=== PATIENT | male | born 1960 | race Caucasian/White ===

== ENCOUNTER 2021-06-08 16:47 | Emergency (ER) | payer MEDICARE, SELFPAY ==
--- NOTE | ~2021-06-08 | XR_ITS ---
EXAMINATION: XR shoulder LT min 2V EXAM DATE: 06/08/2021 18:07 INDICATION: lt shoulder pain, no known injury . TECHNIQUE: The following left shoulder projections obtained: frontal projection with internal rotatio n, frontal projection with external rotation, Grashey, and axillary (4+ views). There is no prior st udy for comparison. FINDINGS: Large dense calcification along the rotator cuff, calcific tendinosis. There is mild glenoh umeral joint, moderate acromioclavicular joint primary osteoarthritis. There are no acute fractures o r dislocations identified. There is no subcutaneous gas. There are no radiopaque foreign bodies. IMPRESSION: 1. Large amount of calcific tendinosis. 2. Moderate acromioclavicular, mild glenohumeral osteoarthritis. 3. No acute findings. Reviewed, dictated and finalized at location .
[2021-06-08 17:09] VITALS: BP 237/96; PULSE 57; RESP 18; TEMP 36.4; O2SAT 100
--- NOTE | 2021-06-08 17:48 | ED.UPPEXIN ---
HPI - Extremity Injury (Upper) General Chief Complaint: Extremity Injury, Upper Stated Complaint: Left Arm Pain Time Seen by Provider: 06/08/21 17:48 Source: patient Mode of arrival: ambulatory Limitations: no limitations History of Present Illness HPI narrative: 60-year-old male presents with left shoulder pain for 3 weeks. Denies injury. States that pain started after he worked on replacing baseboards with his son. No previous left shoulder injury or surgery. States that yesterday he was supposed to have an appointment with his primary care physician but that it was canceled. Reports pain when laying on left side and also pain when laying on right side, is unable to get comfortable when sleeping. States that he has been babying his left arm for 3 weeks. Denies numbness tingling, no weakness. Taking Excedrin Migraine for pain relief. All systems reviewed and negative except as noted above. Related Data Home Medications Medication Instructions Recorded Confirmed Lipitor 06/08/21 amlodipine 06/08/21 aspirin 06/08/21 clopidogrel 06/08/21 hydralazine 06/08/21 isosorbide mononitrate mg PO 06/08/21 metoprolol succinate PO 06/08/21 metoprolol succinate PO 06/08/21 rosuvastatin mg 06/08/21 sertraline mg 06/08/21 zolpidem 06/08/21 Allergies Allergy/AdvReac Type Severity Reaction Status Date / Time Penicillins Allergy Severe Verified 06/29/08 15:52 iodine Allergy Unknown Verified 06/29/08 15:52 PCN, BIAXIN, LIPITOR, Allergy Unknown Uncoded 09/07/02 15:18 BETADINE STRAWBERRIES- CHILLS, Allergy Unknown Uncoded 09/07/02 15:18 VOMITTING, DIARRHEA ANTILIPEMIC Allergy Uncoded 06/29/08 15:52 CLARITHROMYCIN (Generic Allergy Y Uncoded 09/07/02 15:56 Allergy) MACROLIDES Allergy Uncoded 06/29/08 15:52 Review of Systems Review of Systems: CONSTITUTIONAL: Denies fever, chills, or sweats. EYES: Denies visual changes, redness, or discharge. ENT: Denies rhinorrhea, congestion, sore throat, or otalgia. CARDIOVASCULAR: Denies chest pain, palpitations, or edema. RESPIRATORY: Denies cough or dyspnea. GASTROINTESTINAL: Denies abdominal pain, nausea, vomiting, or diarrhea. GENITOURINARY: Denies dysuria or hematuria. SKIN: Denies rash or itching. MUSCULOSKELETAL: Denies back pain, joint pain, or myalgia. Left shoulder pain. NEUROLOGIC: Denies headache, numbness, or weakness. PSYCHIATRIC: Denies anxiety or depression. All other systems reviewed are negative, except as documented in HPI. PMFSH Comments At time of signature, agree with nursing past medical, surgical, social and family history. There is no relevant family history pertinent to the presenting complaint. Exam Narrative: GENERAL: This is a well-nourished, well-developed patient, in no apparent distress. HEAD: normocephalic, atraumatic. EYES: PERRL. Sclera clear/white. Vision is grossly intact. EARS: External ears normal NOSE: External nose normal THROAT: Mucous membranes moist NECK: Neck supple, non-tender without lymphadenopathy, masses or thyromegaly. CARDIOVASCULAR: Regular rate and rhythm without murmurs, gallops, or rubs. RESPIRATORY: Clear to auscultation. Breath sounds equal bilaterally. No wheezes, rales, or rhonchi. SKIN: warm, Dry, intact with no suspicious lesions or rash, good texture and turgor. NEURO: awake, alert, and oriented to person, place and time. There were no obvious focal neurologic abnormalities. EXTREMITIES: Normal range of motion all extremities. Tenderness to left shoulder at the AC joint, extending into the upper arm. Movement of left shoulder increases pain. Negative drop arm test. Course Course Level of Care: Express Care Visit Vital Signs Vital signs: Vital Signs Temperature 36.4 C L 06/08/21 17:09 Pulse Rate 57 L 06/08/21 17:09 Respiratory Rate 18 06/08/21 17:09 Blood Pressure 237/96 H 06/08/21 17:09 Pulse Oximetry 100 06/08/21 17:09 Temperature 36.4 C L 06/08/21 17:0
== END 2021-06-08 18:38 | disposition home or self-care (01) ==
PROVIDERS: Emergency Provider Nurse Practitioner Family
DX: M75.32 Calcific tendinitis of left shoulder (principal); M19.012 Primary osteoarthritis, left shoulder; Z86.16 Personal history of COVID-19; E78.00 Pure hypercholesterolemia, unspecified; I10 Essential (primary) hypertension
CPT/HCPCS: 73030; 99213; A4565; G0463

== ENCOUNTER 2021-10-26 12:43 | Emergency (ER) | payer MEDICARE, SELFPAY ==
--- NOTE | ~2021-10-26 | XR_ITS ---
EXAMINATION: XR chest 2V DATE: 10/26/2021 13:32 INDICATION: Shortness of breath. TECHNIQUE: Frontal and lateral views of the chest were obtained. COMPARISON: None. FINDINGS: The lungs are hyperexpanded, consistent with emphysema. No pneumonia, pleural effusion, or pneumothorax. The heart size is normal. IMPRESSION: 1. Emphysema. Reviewed, dictated and finalized at location A. IMPRESSION: 1. Emphysema.
[2021-10-26 12:52] VITALS: BP 197/92; PULSE 46; RESP 16; TEMP 36.6; O2SAT 100
--- NOTE | 2021-10-26 13:04 | ED.SKABFB ---
HPI - Skin/Abscess/Foreign Bdy General Chief complaint: Skin/Abscess/Foreign Body Stated complaint: Rash Time Seen by Provider: 10/26/21 13:09 Source: patient and RN notes reviewed Mode of arrival: ambulatory Limitations: no limitations History of Present Illness HPI narrative: 61-year-old male presents to concern for discoloration on his right ankle. Reports he may have gotten bit by a bug last night, he went home and scrubbed his ankle where he may have gotten bitten. He denies any itching or pain. Reports woke up this morning and noticed discoloration in the area. In a separate complaint the patient's reports he has been coughing for 2 weeks and she has noticed some heavy breathing. He reports he gets bilateral ankle swelling intermittently. His gave him one of her Lasix this week. He has a history of several CVAs and TIAs, has history of hypertension. He did not take all of his medication today. MD complaint: discoloration Related Data Home Medications Medication Instructions Recorded Confirmed amlodipine 10 mg tablet 06/08/21 aspirin 81 mg tablet,delayed 06/08/21 release clopidogrel 75 mg tablet 06/08/21 hydralazine 50 mg tablet 06/08/21 isosorbide mononitrate 60 mg mg PO 06/08/21 tablet,extended release 24 hr metoprolol succinate 100 mg PO 06/08/21 tablet,extended release 24 hr metoprolol succinate 50 mg PO 06/08/21 tablet,extended release 24 hr rosuvastatin 20 mg tablet mg 06/08/21 sertraline 100 mg tablet mg 06/08/21 zolpidem 10 mg tablet 06/08/21 doxazosin 2 mg tablet mg 10/26/21 Allergies Allergy/AdvReac Type Severity Reaction Status Date / Time Penicillins Allergy Severe Unknown Verified 10/26/21 12:46 iodine Allergy Unknown Unknown Verified 10/26/21 12:46 atorvastatin [From Lipitor] Allergy Weakness Verified 10/26/21 13:25 PCN, BIAXIN, LIPITOR, Allergy Unknown Unknown Uncoded 10/26/21 12:46 BETADINE STRAWBERRIES- CHILLS, Allergy Unknown Unknown Uncoded 10/26/21 12:46 VOMITTING, DIARRHEA ANTILIPEMIC Allergy Unknown Uncoded 10/26/21 12:46 CLARITHROMYCIN (Generic Allergy Y Uncoded 10/26/21 12:46 Allergy) MACROLIDES Allergy Unknown Uncoded 10/26/21 12:46 Review of Systems Review of Systems: CONSTITUTIONAL: Denies malaise, chills, sweats, or fever. EYES: Denies redness, or discharge. ENT: Denies rhinorrhea, congestion, swollen lips, swollen tongue CARDIOVASCULAR: Denies chest pain, palpitations, or edema. RESPIRATORY: Reports cough. Patient denies dyspnea. GASTROINTESTINAL: Denies abdominal pain, nausea, vomiting SKIN: Reports discoloration on the right ankle, patient reports it is not itchy or painful MUSCULOSKELETAL: Denies joint pain or myalgia. NEUROLOGIC: Denies headache. All systems reviewed & are unremarkable except as noted in HPI and below PMFSH Comments At time of signature, agree with nursing past medical, surgical, social and family history. There is no relevant family history pertinent to the presenting complaint Exam Narrative: GENERAL: Well-appearing, well-nourished, and in no acute distress. HEAD: Normocephalic, atraumatic. EYES: PERRLA, sclera clear ENT: Nares clear. Mucous membranes moist. NECK: Supple. CHEST: No acute respiratory distress. Clear to auscultation. No bony deformities, no asymmetry. Conversational dyspnea noted HEART: Regular rate and rhythm. No murmur heard. Normal peripheral pulses. EXTREMITIES: Grossly normal range of motion. Grossly normal strength and sensation. 1+ bilateral ankle and foot pitting edema SKIN: Warm, dry. Circumferential flat puerperal discoloration on the right ankle well-demarcated under the sock area NEURO: Alert and oriented x3. PSYCH: Normal mood and affect Course Course Emergency Course: Discussed with patient exam findings, discussed I am concerned with his conversational dyspnea, recent 2-week history of cough, bilateral lower leg edema. Patient is agreeable to a chest x-ray
== END 2021-10-26 14:11 | disposition home or self-care (01) ==
PROVIDERS: Emergency Provider Nurse Practitioner; PCP Family Medicine
DX: R60.0 Localized edema (principal); R91.8 Other nonspecific abnormal finding of lung field; D69.2 Other nonthrombocytopenic purpura; Z86.73 Personal history of transient ischemic attack (TIA), and cerebral infarction without residual deficits; E78.00 Pure hypercholesterolemia, unspecified; I10 Essential (primary) hypertension
CPT/HCPCS: 71046; 99213; G0463

== ENCOUNTER 2022-03-16 16:09 | Emergency (ER) | payer MEDICARE, SELFPAY | END 2022-03-16 16:58 | disposition left against medical advice (07) | PROVIDERS: Emergency Provider Internal Medicine Hematology & Oncology | DX: Z53.21 Procedure and treatment not carried out due to patient leaving prior to being seen by health care provider (principal) | CPT/HCPCS: 99199 ==